=== PATIENT | female | born 1990 | race Caucasian/White ===

== ENCOUNTER 2019-04-18 13:43 | Emergency (ER) | payer MEDICAID, OTHER ==
[~2019-04-18] VITALS: Ht 154.9 cm; Wt 55.8 kg
--- NOTE | 2019-04-18 14:31 | NUR ---
Dr Carreno is at bedside doing the MSE.
[2019-04-18] MEDS ORDERED: IV NORMAL SALINE 1000 ML BAG IV ONE (14:45)
[2019-04-18] MEDS ORDERED: KETOROLAC TROMETHAMINE 15 MG INJ IVP ONE (14:45)
[2019-04-18] MEDS ORDERED: METOCLOPRAMIDE HCL 10 MG/2 ML VIAL IV ONE (14:45)
[2019-04-18] MEDS ORDERED: KETOROLAC TROMETHAMINE 15 MG INJ ONE (14:48)
[2019-04-18] MEDS ORDERED: METOCLOPRAMIDE HCL 10 MG/2 ML VIAL ONE (14:48)
[2019-04-18 14:54] LABS: BASOPHILS % (AUTO) 0.1 % (0.0-2.0); EOSINOPHILS % (AUTO) 0.1 % (0.0-7.0); HEMATOCRIT 33.8 % (31.2-41.9); HEMOGLOBIN 11.2 g/dL (10.9-14.3); LYMPHOCYTES # (AUTO) 1.6 K/uL (20.0-40.0); LYMPHOCYTES % (AUTO) 19.3 % (20.5-51.5); MEAN CORPUSCULAR HEMOGLOBIN 27.7 uug (24.7-32.8); MEAN CORPUSCULAR HGB CONC 33 g/dL (32.3-35.6); MEAN CORPUSCULAR VOLUME 83.7 fL (75.5-95.3); MONOCYTES # (AUTO) 0.5 K/uL (2.0-10.0); MONOCYTES % (AUTO) 6.3 % (0.0-11.0); NEUTROPHILS # (AUTO) 6.1 K/uL (1.8-8.9); NEUTROPHILS % (AUTO) 74.2 % (38.5-71.5); PLATELET COUNT (AUTO) 259 K/uL (179-408); RED BLOOD CELL COUNT(AUTO) 4.04 MIL/uL (3.63-4.92); WHITE BLOOD COUNT (AUTO) 8.3 K/uL (3.8-11.8)
[2019-04-18 15:02] LABS: CREATININE 0.7 mg/dL (0.6-1.3)
[2019-04-18 15:08] LABS: BILIRUBIN,DIRECT 0.1 mg/dL (0.0-0.2); BILIRUBIN,TOTAL 0.4 mg/dL (0.2-1.0); TOTAL PROTEIN, SERUM 7.7 g/dL (6.4-8.2)
--- NOTE | 2019-04-18 15:29 | NUR ---
Patient is resting comfortably on gurney with eyes closed with decreasing headaches expressed, for disposition.
--- NOTE | 2019-04-18 15:44 | NUR ---
IV removed. Catheter intact and site benign. Pressure and 4x4 gauze applied to site. No bleeding noted. Patient discharged to home in stable conditon with brisk steady gait. Written and verbal after care instructions given to patient. Patient verbalizes understanding of instructions.
[2019-04-18 15:45] VITALS: BP 120/86
== END 2019-04-18 15:46 | disposition home or self-care (01) ==
LOC: ER 13:43
DX: B34.9 Viral infection, unspecified (principal); R51 Headache; F17.200 Nicotine dependence, unspecified, uncomplicated
CPT/HCPCS: 36415; 80048; 80076; 84702; 85025; 85610; 96374; 96375; 99283; J1885; J2765; A4663; J7030